=== PATIENT | female | born 1965 | race Caucasian/White ===

== ENCOUNTER 2018-05-03 15:14 | Emergency (ER) | payer MEDICAID ==
[~2018-05-03] VITALS: Ht 154.9 cm; Wt 110.6 kg
[2018-05-03 16:01] VITALS: BP 126/86
[2018-05-03] MEDS ORDERED: KETOROLAC 30 MG/1 ML IM ONE (17:00)
[2018-05-03] MEDS ORDERED: KETOROLAC 30 MG/1 ML ONE (17:08)
== END 2018-05-03 19:39 | disposition home or self-care (01) ==
LOC: ED 19:04
DX: S39.012A Strain of muscle, fascia and tendon of lower back, initial encounter (principal); I10 Essential (primary) hypertension; M43.16 Spondylolisthesis, lumbar region; M48.061 Spinal stenosis, lumbar region without neurogenic claudication; M51.17 Intervertebral disc disorders with radiculopathy, lumbosacral region; X58.XXXA Exposure to other specified factors, initial encounter; Y93.89 Activity, other specified; Y99.8 Other external cause status; Y92.89 Other specified places as the place of occurrence of the external cause
CPT/HCPCS: 72110; 72148; 96372; 99284; J1885

== ENCOUNTER 2020-01-19 05:51 | Emergency (ER) | payer MEDICAID ==
[~2020-01-19] VITALS: Ht 154.9 cm; Wt 108.0 kg
[~2020-01-19 05:51] MED LIST: APIX5TAB PO
--- NOTE | 2020-01-19 06:13 | NUR ---
THIS IS A 54Y F BIB EMS FROM HOME FOR SOB AND COUGH X1WK. PT CURRENTLY TAKING ABX FOR BRONCHITIS, HX OF COPD STILL SMOKES 2PACKS/ DAY. 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 PT ABLE TO SPEAK IN FULL SENTENCES AND IS A/O X4. XRAY AT BEDSIDE AT THIS TIME
--- NOTE | 2020-01-19 06:20 | NUR ---
PT STS SHE DOES NOT WANT TO WEAR A GOWN SHE WILL HAVE TO CHANGE AGAIN SOON TO GO HOME
--- NOTE | 2020-01-19 06:23 | NUR ---
PT MEDICATED PER MAR
--- NOTE | 2020-01-19 06:59 | NUR ---
Handoff report received from ZARINA RN. Pt in room, no compaints, waiting for Xray results. IV removed.
[2020-01-19 07:07] VITALS: BP 129/87
== END 2020-01-19 07:22 | disposition home or self-care (01) ==
LOC: ED 06:24
DX: J44.1 Chronic obstructive pulmonary disease with (acute) exacerbation (principal); I10 Essential (primary) hypertension; R00.0 Tachycardia, unspecified
CPT/HCPCS: 71045; 93005; 99283; J7512

== ENCOUNTER 2021-04-22 04:32 | Inpatient (IN) | payer MEDICAID ==
[~2021-04-22] VITALS: Ht 154.9 cm; Wt 117.8 kg
--- NOTE | 2021-04-22 04:43 | NUR ---
Pt asked multiple times throughout triage to keep mask on. Pt states "I cant breathe." Educated pt that her respirations are even and unlabored with the mask on, therefore, she is able to breathe. Pt did not verbalize understanding. Continues to pull mask off her face.
--- NOTE | 2021-04-22 04:49 | NUR ---
PATIENT COMPLAINS OF RIGHT FLANK PAIN. STATES SHE WAS AT [facility] A WEEK AGO AND "EVERYTHING WAS NORMAL". PATIENT REFUSED TO GIVE URINE FOR A UA PRIOR TO GOING TO THE ROOM. PATIENT CHANGED INTO A GOWN AND CONNECTED TO THE MONITORS. FAMILY AT BEDSIDE.
[2021-04-22] MEDS ORDERED: MORPHINE SULFATE 4 MG/ML, 1ML IVPush PRN (05:30)
[2021-04-22] MEDS ORDERED: ONDANSETRON 2MG/ML, 2ML ONE ×2 (05:30→17:45)
[2021-04-22] MEDS ORDERED: ONDANSETRON 2MG/ML, 2ML IVPush ONE (05:30)
[2021-04-22] MEDS ORDERED: MORPHINE SULFATE 4 MG/ML, 1ML ONE (05:30)
[2021-04-22] MEDS ORDERED: HYDROmorphone 2 MG/ML, 1ML ONE (05:36)
[2021-04-22 05:46] LABS: BASOPHILS % (AUTO) 1 % (0-1); EOSINOPHILS % (AUTO) 4 % (1-7); LYMPHOCYTES % (AUTO) 27 % (22-44); MEAN CORPUSCULAR HEMOGLOBIN 29.5 pg (27.0-34.8); MEAN CORPUSCULAR HGB CONC 33.5 g/dL (32.4-35.8); MEAN PLATELET VOLUME 7.3 fL (7.4-10.4); MONOCYTES % (AUTO) 7 % (2-9); NEUTROPHILS % (AUTO) 62 % (42-75); PLATELET COUNT 326 x10^3/uL (130-400); RED BLOOD COUNT 5.09 x10^6/uL (3.82-5.3); RED CELL DISTRIBUTION WIDTH 13.9 % (9.6-15.2)
[2021-04-22 05:53] LABS: ALANINE AMINOTRANSFERASE 17 U/L (12-78); ALBUMIN 2.9 g/dL (3.4-5.0); ANION GAP 6 mmol/L (5-15); CHLORIDE 108 mmol/L (98-107); CREATININE 0.84 mg/dL (0.55-1.02)
[2021-04-22 05:53] LABS: MICROSCOPIC NOT IND
[2021-04-22 05:56] LABS: ALKALINE PHOSPHATASE 78 U/L (45-117); BILIRUBIN,TOTAL 0.5 mg/dL (0.2-1.0); TOTAL PROTEIN 6.7 g/dL (6.4-8.2)
[2021-04-22] MEDS ORDERED: HYDROmorphone 1 MG/ML, 1ML INJ IV ONE (06:00)
--- NOTE | 2021-04-22 06:05 | NUR ---
PATIENT RESTING ON GURNEY COMFORTABLY AFTER RECIVING 0.5 OF DILAUDED. PATIENT PLACED ON OXYGEN BECAUSE OF MEDS AND PATIENT STATING "I CAN'T BREATH" EVEN WITH RA SATS OF 92%-95%
[2021-04-22] MEDS ORDERED: OMNIPAQUE 350 MG/ML, 150 ML BOTTLE ONE (06:15)
--- NOTE | 2021-04-22 06:55 | NUR ---
REPORT FROM ELIEL SHEIKH AT THIS TIME. PT RESTING IN [place] AT THIS TIME, PT UP FOR RECHECK, TUSHAR.
--- NOTE | 2021-04-22 07:12 | NUR ---
dr warner spoke with dr iqbal
--- NOTE | 2021-04-22 07:49 | NUR ---
PT REQUESTING WATER. PER EDMD PT TO BE NPO BUT CAN HAVE ORAL SWABS. PT GIVEN LEMON SWABS. NADN AT THIS TIME, TUSHAR.
[2021-04-22] MEDS ORDERED: ACETAMINOPHEN 325 MG TABLET PO PRN ×2 (08:30→18:00)
[2021-04-22] MEDS ORDERED: MELATONIN 5 MG TABLET PO PRN (08:30)
[2021-04-22] MEDS ORDERED: ONDANSETRON 2MG/ML, 2ML IVPush PRN ×2 (08:30→18:00)
[2021-04-22] MEDS ORDERED: HYDROmorphone 2 MG/ML, 1ML IM PRN (08:30)
[2021-04-22 08:36] LABS: BASOPHILS % (AUTO) 1 % (0-1); EOSINOPHILS % (AUTO) 3 % (1-7); LYMPHOCYTES % (AUTO) 24 % (22-44); MEAN CORPUSCULAR HEMOGLOBIN 28.8 pg (27.0-34.8); MEAN CORPUSCULAR HGB CONC 32.5 g/dL (32.4-35.8); MEAN PLATELET VOLUME 7.2 fL (7.4-10.4); MONOCYTES % (AUTO) 7 % (2-9); NEUTROPHILS % (AUTO) 66 % (42-75); PLATELET COUNT 337 x10^3/uL (130-400); RED BLOOD COUNT 5.05 x10^6/uL (3.82-5.3); RED CELL DISTRIBUTION WIDTH 14.4 % (9.6-15.2)
[2021-04-22] MEDS ORDERED: NICOTINE GUM 2 MG BC PRN (09:00)
[2021-04-22] MEDS: BUDESONIDE 0.5 MG/2 ML INHA NPPB SCH ×2 (09:00→20:45)
[2021-04-22] MEDS ORDERED: ALBUTEROL SULFATE 2.5 MG/3 ML HHN SCH (09:00)
[2021-04-22 10:25] VITALS: BP 102/65
[2021-04-22] MEDS: ALBUTEROL/IPRATROPIUM 2.5MG/0.5MG, 3 ML HHN SCH ×3 (11:02→20:40)
[2021-04-22] MEDS ORDERED: REGADENOSON 0.4 MG/5 ML SYRINGE ONE (11:16)
[2021-04-22] MEDS ORDERED: SINCALIDE (KINEVAC) 5 MCG ONE (11:16)
[2021-04-22 12:59] VITALS: BP 100/64
[2021-04-22] MEDS: BENZONATATE 100 MG CAPSULE PO ONE ×2 (15:50→21:14)
[2021-04-22] MEDS ORDERED: CHLORHEXIDINE 15 ML UDC PO ONE (15:55)
[2021-04-22] MEDS ORDERED: CHLORHEXIDINE 15 ML UDC ONE (15:57)
[2021-04-22] MEDS ORDERED: MIDAZOLAM 1 MG/ML, 2ML ONE (17:36)
[2021-04-22] MEDS ORDERED: FENTANYL PF 250 MCG/5ML ONE (17:36)
[2021-04-22] MEDS ORDERED: LIDOCAINE-MPF 2% ,5ML ONE (17:36)
[2021-04-22] MEDS ORDERED: SODIUM CHLORIDE 0.9% PF 10ML ONE (17:36)
[2021-04-22] MEDS ORDERED: ROCURONIUM 10MG/ML,5ML ONE (17:45)
[2021-04-22] MEDS ORDERED: PROPOFOL 10 MG/ML, 20ML ONE (17:45)
[2021-04-22] MEDS ORDERED: CEFAZOLIN 1,000 MG ONE (17:45)
[2021-04-22] MEDS ORDERED: SUCCINYLCHOLINE 20 MG/ML, 10ML ONE (17:45)
[2021-04-22] MEDS ORDERED: DEXAMETHASONE 4 MG/ML, 1ML ONE (17:45)
[2021-04-22] MEDS ORDERED: EPINEPHRINE 1 MG/ML, 1ML ONE (17:50)
[2021-04-22] MEDS ORDERED: BUPIVACAINE/PF 0.5% ONE (17:50)
[2021-04-22] MEDS ORDERED: PROMETHAZINE 25 MG/ML, 1ML IVPush PRN (18:00)
[2021-04-22] MEDS ORDERED: LABETALOL 5MG/ML, 20ML IV PRN (18:00)
[2021-04-22] MEDS ORDERED: HYDROmorphone 1 MG/ML, 1ML INJ IVPush PRN (18:00)
[2021-04-22] MEDS ORDERED: EPHEDRINE 50 MG/ML, 1ML IVPush PRN (18:00)
[2021-04-22] MEDS ORDERED: hydrALAzine 20 MG/ML, 1ML IV PRN (18:00)
[2021-04-22] MEDS ORDERED: OXYcodone 5 MG/5 ML ORAL.SOL UDC PO PRN (18:00)
[2021-04-22] MEDS ORDERED: KETOROLAC 30 MG/1 ML ONE ×2 (18:16→19:55)
[2021-04-22] MEDS ORDERED: SUGAMMADEX 200 MG/2 ML IVPush ONE (18:22)
[2021-04-22] MEDS: KETOROLAC 30 MG/1 ML IVPush SCH (19:00)
[2021-04-22] MEDS ORDERED: HYDROcodone/APAP 5/325 TABLET PO PRN (19:00)
[2021-04-22] MEDS ORDERED: FENTANYL PF 100 MCG/2ML ONE (19:34)
[2021-04-22] MEDS ORDERED: OXYcodone 5 MG/5 ML ORAL.SOL UDC ONE (19:34)
[2021-04-22] MEDS: FENTANYL PF 100 MCG/2ML IV PRN ×2 (19:39→19:54)
[2021-04-22] MEDS ORDERED: CIPROFLOXACIN/PMX 400MG/200ML 200 ML IV SCH (20:00)
[2021-04-22] MEDS ORDERED: ALBUTEROL/IPRATROPIUM 2.5MG/0.5MG, 3 ML ONE (20:02)
[2021-04-22] MEDS: METRONIDAZOLE PMX 500MG/100ML 100 ML IV SCH (20:41)
[2021-04-22 21:00] VITALS: BP 140/90
[2021-04-23] MEDS: KETOROLAC 30 MG/1 ML IVPush SCH ×2 (00:35→06:17)
[2021-04-23 00:40] VITALS: BP 108/75
[2021-04-23] MEDS: ALBUTEROL/IPRATROPIUM 2.5MG/0.5MG, 3 ML HHN SCH ×2 (03:00→07:09)
[2021-04-23] MEDS: METRONIDAZOLE PMX 500MG/100ML 100 ML IV SCH (04:13)
[2021-04-23 05:04] LABS: ALBUMIN 3.3 g/dL (3.4-5.0); ANION GAP 6 mmol/L (5-15); CALCIUM 8.8 mg/dL (8.5-10.1); CHLORIDE 106 mmol/L (98-107)
[2021-04-23 05:17] LABS: ALANINE AMINOTRANSFERASE 29 U/L (12-78); ALKALINE PHOSPHATASE 80 U/L (45-117); BILIRUBIN,TOTAL 0.7 mg/dL (0.2-1.0); CREATININE 0.96 mg/dL (0.55-1.02); TOTAL PROTEIN 7.2 g/dL (6.4-8.2)
[2021-04-23] MEDS: BUDESONIDE 0.5 MG/2 ML INHA NPPB SCH (07:09)
[2021-04-23 08:08] VITALS: BP 141/91
[2021-04-23 08:34] LABS: BASOPHILS % (AUTO) 0 % (0-1); EOSINOPHILS % (AUTO) 0 % (1-7); LYMPHOCYTES % (AUTO) 8 % (22-44); MEAN CORPUSCULAR HEMOGLOBIN 29.4 pg (27.0-34.8); MEAN CORPUSCULAR HGB CONC 32.9 g/dL (32.4-35.8); MEAN PLATELET VOLUME 7.8 fL (7.4-10.4); MONOCYTES % (AUTO) 2 % (2-9); NEUTROPHILS % (AUTO) 90 % (42-75); PLATELET COUNT 355 x10^3/uL (130-400); RED BLOOD COUNT 4.85 x10^6/uL (3.82-5.3); RED CELL DISTRIBUTION WIDTH 14.2 % (9.6-15.2)
[2021-04-23] MEDS ORDERED: IPRA3AMP30 HHN (10:00)
[2021-04-23] MEDS ORDERED: HYDR-2214 PO (10:00)
[2021-04-23] MEDS ORDERED: BUDE0.5A NPPB (10:00)
[2021-04-23] MEDS ORDERED: CIPR750T PO (10:03)
[2021-04-23] MEDS ORDERED: METR500T PO (10:03)
[2021-04-24] MEDS ORDERED: FLUT1AER INH (10:41)
== END 2021-04-23 10:38 | disposition home or self-care (01) | DRG 418 ==
LOC: ED 07:44 → 4NW 07:45 → ED 07:45 → 4NW 09:38
PROVIDERS: ADMIT Hospitalist; ATTEND Hospitalist
PROC: 0FT44ZZ Resection of Gallbladder, Percutaneous Endoscopic Approach (ICD-10-PCS; principal; 2021-04-22 16:45)
DX: K82.8 Other specified diseases of gallbladder (principal); K57.32 Diverticulitis of large intestine without perforation or abscess without bleeding; Z68.43 Body mass index [BMI] 50.0-59.9, adult; F17.200 Nicotine dependence, unspecified, uncomplicated; J44.9 Chronic obstructive pulmonary disease, unspecified; D72.829 Elevated white blood cell count, unspecified; Z20.822 Contact with and (suspected) exposure to COVID-19; K21.9 Gastro-esophageal reflux disease without esophagitis; M54.5 Low back pain; M54.32 Sciatica, left side; F43.10 Post-traumatic stress disorder, unspecified; E66.01 Morbid (severe) obesity due to excess calories; G47.33 Obstructive sleep apnea (adult) (pediatric); Z88.5 Allergy status to narcotic agent; Z90.710 Acquired absence of both cervix and uterus; Z88.0 Allergy status to penicillin
CPT/HCPCS: 36415; 84145; 96374; 96375; 99285; J3490; J7626; S0020; 71045; 74177; 78227; 80053; 81003; 83605; 83690; 83735; 84100; 84443; 85025; 87635; 88304; 93005; 94640; 94660; G0378; J0171; J0690; J0744; J1100; J1170; J1885; J2250; J2405; J2704; J2785; J3010; Q9967; A9537; C9898; J0330; J2805